=== PATIENT | female | born 1960 | race Caucasian/White ===

== ENCOUNTER → 2016-12-30 | Outpatient (CLI) | payer OTHER ==
[~2016-12-30] MED LIST: TUMS PO
--- NOTE | ~2016-12-30 | CR63 ---
[facility] A Service of [facility] RADIOLOGY TEXT RESULTS PATIENT: LAMONT VEGA LOCATION: [facility] : 58 UNIT #: [id number] AGE: [address]: Brandy Wesley APRN SEX: F ORDER DR: [id number] [address] [address] [id number] O MR#: [id number] Acc #: [id number] NAME: LAMONT VEGA : 1960 SEX: F STUDY DATE/TIME: 12/30/2016 13:09 UNIT: [facility] ROOM: STUDY DESCRIPTION: CR Chest 2 View Attending Physician: Brandy Wesley A.P.R.N. Referring Physician: Brandy Wesley A.P.R.N. Ordering Physician: Brandy Wesley A.P.R.N. Primary Care Physician: Brandy Wesley A.P.R.N. MEDICAL IMAGING REPORT This report is preliminary unless electronic signature is present. EXAM Chest, 12/30/2016, [facility]. HISTORY 56-year-old woman with cough, 6 months duration. COMPARISON Chest, 05/26/2007. FINDINGS Two-view chest demonstrates mild cardiac enlargement, exaggerated somewhat by low lung volumes. Hilar structures are preserved. Lungs appear clear and costophrenic angles preserved. Increase in body habitus noted. There is a Lap-Band now in place. IMPRESSION Interim weight gain apparent. Reduced inspiration results in mild prominence of the cardiac silhouette. Lap-Band is now noted. No acute chest finding. Dictated by... Ambrocio Oleary M.D. THIS IS AN ELECTRONICALLY VERIFIED REPORT Ambrocio Oleary M.D. at 12/31/2016 8:06 AM JESSICA/diane TD: 12/30/2016 16:17 JOB #: [id number] [facility] A Service of [facility] RADIOLOGY TEXT RESULTS PATIENT: LAMONT VEGA [id number] 58 UNIT #: [id number] AGE: [address]: Brandy Wesley APRN SEX: F ORDER DR: MEDICAL IMAGING REPORT Page 1 of 1
== END | disposition home or self-care (01) ==
LOC: SRAD 12:51
DX: R05 Cough (principal)
CPT/HCPCS: 71020